=== PATIENT | female | born 1965 | race Two or more races ===

== ENCOUNTER 2017-08-20 06:12 | Day surgery (SDC) | payer BC ==
[2017-08-20 06:44] VITALS: BMI 30.7
[2017-08-20] MEDS ORDERED: ceFAZolin SODIUM 1 GM VIAL ONE ×2 (07:14→07:15)
[2017-08-20] MEDS ORDERED: SUCCINYLCHOLINE CHLORIDE 200 MG/10 ML VIAL ONE (07:15)
[2017-08-20] MEDS ORDERED: PROPOFOL 20 ML ONE ×2 (07:15)
[2017-08-20] MEDS ORDERED: ONDANSETRON 4 MG/2 ML VIAL ONE (07:15)
[2017-08-20] MEDS ORDERED: DEXAMETHASONE SOD PHOSPHATE 4 MG/1 ML VIAL ONE (07:15)
[2017-08-20] MEDS ORDERED: MIDAZOLAM HCL 2 MG/2 ML SINGLE DOSE VIAL ONE (07:15)
[2017-08-20] MEDS ORDERED: KETOROLAC TROMETHAMINE 30 MG/1 ML VIAL ONE (07:15)
[2017-08-20] MEDS ORDERED: LIDOCAINE HCL 2% JELLY (5 ML/TUBE) ONE (07:15)
[2017-08-20] MEDS ORDERED: LIDOCAINE HCL/PF 2% SDV 5ML VIAL ONE (07:15)
[2017-08-20] MEDS ORDERED: LIDOCAINE HCL 1%, 10 MG/ML (20ML VIAL) ONE (08:11)
[2017-08-20] MEDS ORDERED: LIDOCAINE HCL 1%, 10 MG/ML (50 mL VIAL) IJ ONE (08:21)
[2017-08-20] MEDS ORDERED: ePHEDrine SULFATE 50 MG/1 ML AMPULE ONE (08:23)
[2017-08-20 09:40] VITALS: TEMP 97.6
[2017-08-20] MEDS ORDERED: ONDANSETRON 4 MG/2 ML VIAL IVPUSH PRN (09:56)
[2017-08-20] MEDS ORDERED: oxyCODONE HCL 5 MG TABLET PO PRN (09:56)
[2017-08-20] MEDS ORDERED: LACTATED RINGERS SOLUTION 1,000 ML IV SCH (10:00)
[2017-08-20 10:28] VITALS: BP 122/64; PULSE 68
--- NOTE | 2017-08-23 16:03 | OP ---
DATE OF OPERATION: 08/20/2017 SURGEON: Leonel Jonas MD PER ASSESSMENT NURSE: KAYDEN Conley PREOPERATIVE DIAGNOSIS: Right elbow lateral epicondylitis. POSTOPERATIVE DIAGNOSIS: Right elbow lateral epicondylitis. PROCEDURE: Tenex percutaneous release right elbow lateral epicondylar tissue and debridement. FINDINGS: 1. Thickened scar tissue, extensor supinator tendon insertion into lateral epicondyle noted on ultrasound guidance. 2. Palpable scar tissue. PROCEDURE: Informed consent was obtained. The patient was taken to the operating room where the right upper extremity was prepped and draped in a sterile fashion. A tourniquet was placed on the upper arm but not inflated. Three centimeters distal to the lateral epicondyle a 1 cm incision was made. Prior to the start of surgery, point of maximal tenderness was marked on the lateral epicondyle. Ultrasound was put into place and the damaged tissue was noted on ultrasound. Using a Tenex debridement needle, with irrigation and debridement contained in the same device, debridement of the central portion and damaged area was performed. This was done with ultrasound guidance, allowing for both irrigation and debridement. This was done across the tendon in a grid-like pattern, removing the damaged area. Sixty-three seconds of Tenex time was used. The wound was then irrigated and closed with a single 3-0 nylon. A sterile dressing was placed. The patient was transferred to the recovery room without complication. LEONEL JONAS M.D. [id number]
== END 2017-08-20 10:20 | disposition home or self-care (01) ==
LOC: FASU 06:12
PROVIDERS: ATTEND Orthopaedic Surgery
PROC: 0LC Tendons, Extirpation (ICD-10-PCS; principal; 2017-08-20 07:30)
DX: M77.11 Lateral epicondylitis, right elbow (principal)
CPT/HCPCS: 94760